=== PATIENT | female | born 1945 | race Hispanic/Latino ===

== ENCOUNTER 2022-11-13 01:03 | Emergency (ER) | payer MEDICARE ==
[~2022-11-13] VITALS: Ht 160 cm; Wt 53.5 kg
[2022-11-13] MEDS ORDERED: DEXAMETHASONE SOD PHOSPHATE 4 MG/ML 1ML VIAL IV ONE (03:00)
[2022-11-13] MEDS ORDERED: FAMOTIDINE 20MG VIAL IV ONE (03:00)
[2022-11-13] MEDS ORDERED: KETOROLAC 30MG VIAL (30MG/ML) IVP ONE (03:00)
[2022-11-13] MEDS ORDERED: METOCLOPRAMIDE 10 MG/2 ML VIAL IVP ONE (03:00)
[2022-11-13] MEDS ORDERED: 0.9%NACL 1000ML 1,000 ML IV ONE (03:00)
[2022-11-13 03:14] LABS: EOSINOPHILS % (AUTO) 0.5 % (0.0-8.0); HEMATOCRIT 38.9 % (36-48); LYMPHOCYTES % (AUTO) 23.3 % (21.0-51.0); MEAN CORPUSCULAR HEMOGLOBIN 31.1 pg (27.0-33.0); MEAN CORPUSCULAR HGB CONC 34.2 g/dL (32.0-36.0); MEAN CORPUSCULAR VOLUME 91.1 fL (79-99); MONOCYTES % (AUTO) 6.2 % (3.0-13.0); NEUTROPHILS % (AUTO) 69.5 % (40.0-77.0); PLATELET COUNT (AUTO) 208 K/uL (130-400); RED BLOOD CELL COUNT(AUTO) 4.27 MIL/uL (4.00-5.50); RED CELL DISTRIBUTION WIDTH 11.7 % (11.0-15.5); WHITE BLOOD COUNT (AUTO) 4.3 K/uL (4.8-10.8)
[2022-11-13 03:26] LABS: INR 0.93 (0.85-1.15); PROTHROMBIN TIME 10.2 SEC (9.6-11.6)
[2022-11-13 03:28] LABS: PARTIAL THROMBOPLASTIN TIME 27.6 SEC (26.3-35.5)
[2022-11-13 03:29] LABS: ALBUMIN 3.9 g/dL (3.5-5.0); CREATININE 0.6 mg/dL (0.5-1.5); POTASSIUM 3.6 mmol/L (3.5-5.1); TOTAL PROTEIN, SERUM 7.7 g/dL (6.0-8.3)
[2022-11-13 04:04] LABS: APPEARANCE,URINE CLEAR (CLEAR); BILIRUBIN,URINE NEGATIVE (NEGATIVE); COLOR,URINE LIGHT-YELLOW (YELLOW); GLUCOSE, URINE (UA) NEGATIVE (NEGATIVE); KETONES,URINE 20 mg/dL (NEGATIVE); LEUKOCYTE ESTERASE ,URINE 500 Leu/uL (NEGATIVE); NITRATE,URINE NEGATIVE (NEGATIVE); OCCULT BLOOD,URINE NEGATIVE (NEGATIVE); PROTEIN,URINE 10 mg/dL (NEGATIVE); UROBILINOGEN,URINE 0.2 mg/dL (0.2-1.0)
[2022-11-13 04:10] LABS: BACTERIA,URINE RARE /HPF (None Seen); MUCUS,URINE RARE LPF (None Seen); RBC,URINE 0-1 /HPF (0-1); SQUAMOUS EPITHELIAL CELL,UR RARE /HPF (0-2)
[2022-11-13] MEDS ORDERED: DIAZEPAM 5 MG/ML 2 ML SYG IVP ONE (04:30)
[2022-11-13] MEDS ORDERED: CEFTRIAXONE 2GM VIAL IVPB ONE (04:30)
[2022-11-13] MEDS ORDERED: METO-296 PO (04:37)
[2022-11-13] MEDS ORDERED: ALBUHFA IH (04:37)
[2022-11-13] MEDS ORDERED: BENZ-39 PO (04:37)
[2022-11-13] MEDS ORDERED: CEPH500B PO (04:37)
[2022-11-13 05:25] VITALS: BP 136/73
== END 2022-11-13 05:26 | disposition home or self-care (01) ==
LOC: EDH 01:03
DX: J10.1 Influenza due to other identified influenza virus with other respiratory manifestations (principal); N39.0 Urinary tract infection, site not specified; G25.81 Restless legs syndrome; Z79.52 Long term (current) use of systemic steroids
CPT/HCPCS: 99284; 96375; 96365; 96361; 82550; 80053; 83690; 85025; 85610; 85730; 87040 ×2; 87077 ×2; 87088; 87186 ×2; 83605; 81001; 36415; J1100; J3490; J7030; J0696; J3360; J1885; J2765

== ENCOUNTER 2022-11-15 09:53 | Observation (INO) | payer MEDICARE ==
[~2022-11-15] VITALS: Ht 160 cm; Wt 54.4 kg
[~2022-11-15 09:53] MED LIST: ALBUHFA IH; BENZ-39 PO; CEPH500B PO; METO-296 PO
[2022-11-15 10:18] LABS: APPEARANCE,URINE CLEAR (CLEAR); BILIRUBIN,URINE NEGATIVE (NEGATIVE); COLOR,URINE YELLOW (YELLOW); GLUCOSE, URINE (UA) NEGATIVE (NEGATIVE); KETONES,URINE NEGATIVE (NEGATIVE); LEUKOCYTE ESTERASE ,URINE NEGATIVE Leu/uL (NEGATIVE); NITRATE,URINE NEGATIVE (NEGATIVE); OCCULT BLOOD,URINE NEGATIVE (NEGATIVE); PROTEIN,URINE NEGATIVE (NEGATIVE); UROBILINOGEN,URINE 0.2 mg/dL (0.2-1.0)
[2022-11-15 10:32] LABS: BASOPHILS % (AUTO) 0.1 % (0.0-5.0); EOSINOPHILS % (AUTO) 1.3 % (0.0-8.0); HEMATOCRIT 41.6 % (36-48); LYMPHOCYTES % (AUTO) 27.1 % (21.0-51.0); MEAN CORPUSCULAR HEMOGLOBIN 31.5 pg (27.0-33.0); MEAN CORPUSCULAR HGB CONC 33.9 g/dL (32.0-36.0); MEAN CORPUSCULAR VOLUME 93.1 fL (79-99); MONOCYTES % (AUTO) 9.7 % (3.0-13.0); NEUTROPHILS % (AUTO) 61.5 % (40.0-77.0); PLATELET COUNT (AUTO) 254 K/uL (130-400); RED BLOOD CELL COUNT(AUTO) 4.47 MIL/uL (4.00-5.50)
[2022-11-15 10:58] LABS: ALBUMIN 3.5 g/dL (3.5-5.0); CREATININE 0.6 mg/dL (0.5-1.5); POTASSIUM 3.8 mmol/L (3.5-5.1); TOTAL PROTEIN, SERUM 6.9 g/dL (6.0-8.3)
[2022-11-15] MEDS ORDERED: FAMOTIDINE 20MG VIAL IV ONE (11:00)
[2022-11-15] MEDS ORDERED: 0.9%NACL 1000ML 1,000 ML IV ONE (11:00)
[2022-11-15] MEDS ORDERED: ONDANSETRON 4MG INJ IVP ONE (11:00)
[2022-11-15] MEDS: OSELTAMIVIR PHOSPHATE 75 MG CAP PO ONE ×2 (11:47→11:59)
[2022-11-15] MEDS ORDERED: KETOROLAC 15MG/ML VIAL (15MG/ML) IV ONE (12:00)
[2022-11-15] MEDS ORDERED: ZOLPIDEM TARTRATE 5 MG TAB PO PRN (14:00)
[2022-11-15] MEDS ORDERED: KETOROLAC 10 MG TABLET PO PRN (14:00)
[2022-11-15] MEDS ORDERED: ACETAMINOPHEN 325 MG TAB PO PRN (14:00)
[2022-11-15] MEDS ORDERED: GUAIFENESIN-DM 200/20 MG 10 ML PO PRN (14:00)
[2022-11-15] MEDS ORDERED: ONDANSETRON 4MG INJ IV PRN (14:00)
[2022-11-15] MEDS: 0.9%NACL 1000ML 1,000 ML IV SCH (14:59)
[2022-11-15 15:57] VITALS: BP 145/82
[2022-11-15] MEDS ORDERED: BRIM5DRO OP (16:59)
[2022-11-15] MEDS ORDERED: XALA2.5OS OD (16:59)
[2022-11-15] MEDS ORDERED: ROPI1TAB13 PO (16:59)
[2022-11-15 19:42] VITALS: BP 155/81
[2022-11-15] MEDS: FAMOTIDINE 20MG TAB PO SCH (20:34)
[2022-11-15] MEDS: OSELTAMIVIR PHOSPHATE 75 MG CAP PO SCH (20:34)
[2022-11-15 22:57] VITALS: BP 124/65
[2022-11-16 02:03] VITALS: BP 140/87
[2022-11-16] MEDS: 0.9%NACL 1000ML 1,000 ML IV SCH (02:03)
[2022-11-16 04:41] LABS: BASOPHILS % (AUTO) 0.2 % (0.0-5.0); EOSINOPHILS % (AUTO) 2.1 % (0.0-8.0); HEMATOCRIT 38.5 % (36-48); LYMPHOCYTES % (AUTO) 37.1 % (21.0-51.0); MEAN CORPUSCULAR HEMOGLOBIN 31.5 pg (27.0-33.0); MEAN CORPUSCULAR HGB CONC 33.2 g/dL (32.0-36.0); MEAN CORPUSCULAR VOLUME 94.8 fL (79-99); MONOCYTES % (AUTO) 8.3 % (3.0-13.0); NEUTROPHILS % (AUTO) 51.8 % (40.0-77.0); PLATELET COUNT (AUTO) 213 K/uL (130-400); RED BLOOD CELL COUNT(AUTO) 4.06 MIL/uL (4.00-5.50); RED CELL DISTRIBUTION WIDTH 12.1 % (11.0-15.5); WHITE BLOOD COUNT (AUTO) 5.7 K/uL (4.8-10.8)
[2022-11-16 04:47] LABS: HEMOGLOBIN A1C 5.4 % (4.0-6.0)
[2022-11-16 05:09] LABS: ALBUMIN 2.9 g/dL (3.5-5.0); CREATININE 0.7 mg/dL (0.5-1.5); MAGNESIUM 1.8 mg/dL (1.80-2.40); POTASSIUM 4.1 mmol/L (3.5-5.1); THYROID STIMULATING HORMONE 0.59 uIU/mL (0.36-3.74)
[2022-11-16 07:37] VITALS: BP 141/78
[2022-11-16] MEDS ORDERED: ENOXAPARIN SODIUM 40 MG/0.4 ML SYRINGE SQ SCH (09:00)
[2022-11-16] MEDS: FAMOTIDINE 20MG TAB PO SCH (09:42)
[2022-11-16] MEDS: OSELTAMIVIR PHOSPHATE 75 MG CAP PO SCH (09:42)
[2022-11-16 11:30] VITALS: BP 153/77
[2022-11-16] MEDS ORDERED: OSEL75 PO (15:16)
[2022-11-16] MEDS ORDERED: ONDA4TAB10 PO (15:16)
[2022-11-16] MEDS ORDERED: FAMO20TA8 PO (15:16)
[2022-11-16 16:25] VITALS: BP 161/74
== END 2022-11-16 17:40 | disposition home or self-care (01) ==
LOC: EDH 09:53 → EDHIP 13:54 → WSH 15:55
PROVIDERS: ADMIT Internal Medicine Critical Care Medicine; ATTEND Internal Medicine Critical Care Medicine
DX: J10.1 Influenza due to other identified influenza virus with other respiratory manifestations (principal); Z20.822 Contact with and (suspected) exposure to COVID-19; E87.1 Hypo-osmolality and hyponatremia; E86.0 Dehydration; G25.81 Restless legs syndrome; R53.1 Weakness; H40.9 Unspecified glaucoma; Z91.128 Patient's intentional underdosing of medication regimen for other reason; Z79.899 Other long term (current) drug therapy; Z98.890 Other specified postprocedural states
CPT/HCPCS: 96374; 96361 ×3; 96375; 99285; 84484; 80053 ×2; 85025 ×2; 87040 ×2; 87804 ×2; 83605; 81003; 36415 ×2; 87635; 71045; 93005; 96372; 83036; 84443; 82550; 83735; 82140; G0378 ×28; C9803; J3490; J7030 ×2; J2405; J1885; J1650